=== PATIENT | male | born 1960 | race Caucasian/White ===

== ENCOUNTER 2020-12-26 19:46 | Emergency (ER) | payer BC ==
[~2020-12-26] VITALS: Ht 182.9 cm; Wt 86.4 kg
[2020-12-26] MEDS ORDERED: ZESTRIL5 M1 PO (20:14)
[2020-12-26] MEDS ORDERED: ROBAXIN 75750 MG/TA1 PO (20:15)
[2020-12-26] MEDS ORDERED: MOBIC15 M1 PO (20:15)
[2020-12-26] MEDS ORDERED: CARBAMAZEPINE100 MG PO (21:51)
[2020-12-26 22:07] VITALS: BP 146/93
== END 2020-12-26 22:07 | disposition home or self-care (01) ==
LOC: ED 19:46
DX: G50.0 Trigeminal neuralgia (principal); I10 Essential (primary) hypertension; Z79.899 Other long term (current) drug therapy
CPT/HCPCS: J0595